=== PATIENT | female | born 1990 | race Caucasian/White ===

== ENCOUNTER 2021-06-19 15:10 | Emergency (ER) | payer OTHER ==
[2021-06-19 15:26] VITALS: BP 112/74; PULSE 69; TEMP 97.8; BMI 22.8
[2021-06-19] MEDS ORDERED: SODIUM CHLORIDE 1,000 ML IV STA (16:01)
[2021-06-19] MEDS ORDERED: ACETAMINOPHEN 1000 MG/100 ML VIAL IVPB ONE (16:02)
[2021-06-19] MEDS ORDERED: METOCLOPRAMIDE HCL INJECTION 10 MG/2 ML VIAL IVPUSH ONE (16:03)
[2021-06-19] MEDS ORDERED: METOCLOPRAMIDE HCL INJECTION 10 MG/2 ML VIAL ONE (16:17)
[2021-06-19] MEDS ORDERED: ACETAMINOPHEN INJECTION 100 ML IVPB ONE (16:17)
[2021-06-19 17:14] LABS: BASO % 0.4 % (0-2.0); EOS % 1.9 % (0-4.5); HEMATOCRIT 36.2 % (32.4-45.2); HEMOGLOBIN 11.9 GM/dL (10.7-15.3); MCH 28.9 pg (25.7-33.7); MEAN CELL VOLUME 87.6 fl (80-96); MEAN PLT VOLUME 8.6 fl (7.5-11.1); MONO % 8.7 % (3.8-10.2); PLATELET COUNT 244 10^3/uL (134-434); RBC 4.13 M/mm3 (3.60-5.2); RDW 13.3 % (11.6-15.6); WHITE BLOOD COUNT 10.8 K/mm3 (4.0-10.0)
[2021-06-19 17:18] LABS: HCG,QUALITATIVE URINE Negative
[2021-06-19 17:27] LABS: EPI CELLS >36 /uL (0-25.1); HYALINE CASTS 2 /uL (0-3.1); PH,URINE 7.5 (5.0-8.0); URINE APPEARANCE CLOUDY; URINE BACTERIA 2898 /uL (0-1359); URINE BILIRUBIN NEGATIVE (NEGATIVE); URINE COLOR YELLOW; URINE GLUCOSE (UA) NEGATIVE (NEGATIVE); URINE KETONE NEGATIVE (NEGATIVE); URINE LEUK ESTERASE 3+ (NEGATIVE); URINE NITRITE NEGATIVE (NEGATIVE); URINE PROTEIN TRACE (NEGATIVE); URINE RBC 7 /uL (0-23.9); URINE UROBILINOGEN 0.2 mg/dL (0.2-1.0); URINE WBC 515 /uL (0-25.8)
[2021-06-19 17:29] LABS: CHLORIDE 107 mmol/L (98-107); SODIUM 138 mmol/L (136-145)
[2021-06-19 17:32] LABS: CALCIUM 9.3 mg/dL (8.5-10.1)
[2021-06-19 17:33] LABS: ANION GAP 3 MMOL/L (8-16); CO2 28 mmol/L (21-32); GLUCOSE,RANDOM 73 mg/dL (74-106)
[2021-06-19 17:34] LABS: MAGNESIUM 2.4 mg/dL (1.8-2.4)
[2021-06-19 17:36] LABS: CREATININE 0.7 mg/dL (0.55-1.3); SGOT/AST 24 U/L (15-37); SGPT/ALT 18 U/L (13-61)
[2021-06-19 17:38] LABS: BILIRUBIN,TOTAL 0.4 mg/dL (0.2-1); TOT PROT 7.6 g/dl (6.4-8.2)
[2021-06-19 17:39] LABS: ALK PHOS 50 U/L (45-117)
== END 2021-06-19 17:59 | disposition home or self-care (01) ==
LOC: JER 15:10
PROC: 3E033NZ Introduction of Analgesics, Hypnotics, Sedatives into Peripheral Vein, Percutaneous Approach (ICD-10-PCS; principal; 2021-06-19)
PROC: 3E033GC Introduction of Other Therapeutic Substance into Peripheral Vein, Percutaneous Approach (ICD-10-PCS; 2021-06-19)
PROC: 3E033GC Introduction of Other Therapeutic Substance into Peripheral Vein, Percutaneous Approach (ICD-10-PCS; 2021-06-19)
DX: N30.00 Acute cystitis without hematuria (principal)
CPT/HCPCS: 36415; 71046-TC-FY; 80053; 81003; 82550; 82553; 83735; 84443; 84484; 84703; 85025; 87077; 87086; 93005; 93010; 99285-25; C9803; J0131; U0003; U0005

== ENCOUNTER → 2022-04-08 | Day surgery (SDC) | payer OTHER | END | disposition home or self-care (01) | LOC: JRADUS-SUR 10:30 | PROVIDERS: ATTEND Specialist | PROC: BU081ZZ Plain Radiography of Uterus and Fallopian Tubes using Low Osmolar Contrast (ICD-10-PCS; principal; 2022-04-08) | DX: Z31.41 Encounter for fertility testing (principal) | CPT/HCPCS: 58340; 74740-TC-FY; 76000-TC-FY; 84703 ==

== ENCOUNTER 2023-10-27 20:04 | Emergency (ER) | payer OTHER ==
[2023-10-27 20:12] VITALS: BP 116/53; PULSE 81; RESP 15; TEMP 97.9; BMI 22.6
[2023-10-27] MEDS ORDERED: KETOROLAC TROMETHAMINE 30 MG/1 ML VIAL ONE (20:55)
[2023-10-27] MEDS ORDERED: ACETAMINOPHEN 500 MG TABLET (FP) ONE (20:55)
[2023-10-27] MEDS: KETOROLAC TROMETHAMINE 30 MG/1 ML VIAL IM ONE (21:26)
[2023-10-27] MEDS: ACETAMINOPHEN 500 MG TABLET (FP) PO ONE (21:27)
== END 2023-10-27 21:00 | disposition left against medical advice (07) ==
LOC: JER 20:04
DX: R51.9 Headache, unspecified (principal)
CPT/HCPCS: 99283-25